=== PATIENT | female | born 1940 | race Caucasian/White ===

== ENCOUNTER → 2018-03-15 | Outpatient (CLI) | payer OTHER ==
[~2018-03-15] MED LIST: HYDROCODONE-AP1 EAC6 PO; LIPOFEN150 MG PO; MULTI VITAMIN1 EACH PO; OMEGA 3-6-9 CO1 EACH PO; PERCOCET 7.5-31 EACH PO; PHENERGAN 25 MG25 M1 PO; RESTASIS1 EACH OP; STRONTIUM PO; VITAMIN D32000 UNIT PO; ZOFRAN ODT4 MG PO
== END ==
LOC: M.RAD 10:16
DX: Z12.31 Encounter for screening mammogram for malignant neoplasm of breast (principal)

== ENCOUNTER → 2019-04-11 | Outpatient (CLI) | payer OTHER | LOC: M.RAD 09:47 | DX: Z12.31 Encounter for screening mammogram for malignant neoplasm of breast (principal) ==